=== PATIENT | male | born 1970 | race American Indian/Alaskan Native ===

== ENCOUNTER 2017-05-26 20:56 | Emergency (ER) | payer OTHER ==
[2017-05-26 20:56] VITALS: BMI 35.6
[2017-05-26 20:59] VITALS: RESP 16; TEMP 99.1; O2SAT 99
[2017-05-26] MEDS ORDERED: Albuterol-Ipratrop 3 mg / 0.5 (3 ml) UD INH STA ×2 (21:15)
--- NOTE | 2017-05-26 21:44 | ED PDOC ---
HPI: General Adult Time Seen by Provider: 05/26/17 21:09 Chief Complaint (Nursing): Medical Clearance History Per: Patient History/Exam Limitations: no limitations Onset/Duration Of Symptoms: Hrs Have you had recent travel within the past 21 days to any of the following countries: [place], [place], [place] or [place]?: No Additional Complaint(s): Hx of heroin abuse (states 15 bags per day, last usage was yesterday at unknown time) p/w vomiting, yawning, diarrhea. BIBEMS, was at police station being arraigned and states that he was going into withdrawal. Past Medical History Reviewed: Historical Data, Nursing Documentation, Vital Signs Vital Signs: Last Vital Signs Temp 99.1 F 05/26/17 20:59 Pulse 76 05/26/17 22:14 Resp 16 05/26/17 20:59 BP 143/95 H 05/26/17 22:14 Pulse Ox 99 05/26/17 22:42 - Medical History PMH: Asthma Denies: Depression - Family History Family History: States: Unknown Family Hx - Immunization History Hx Tetanus Toxoid Vaccination: No Hx Influenza Vaccination: Yes Hx Pneumococcal Vaccination: No - Home Medications Home Medications: Ambulatory Orders Medication Instructions Recorded Albuterol 0.083% [Albuterol 3 ml IH Q6 PRN 05/04/17 Sulfate 3 Ml] - Allergies Allergies/Adverse Reactions: Allergies Allergy/AdvReac Type Severity Reaction Status Date / Time No Known Allergies Allergy Verified 06/29/13 14:51 Review of Systems ROS Statement: Except As Marked, All Systems Reviewed And Found Negative Gastrointestinal: Positive for: Nausea, Vomiting, Diarrhea Physical Exam - Reviewed Nursing Documentation Reviewed: Yes Vital Signs Reviewed: Yes - Physical Exam Appears: Positive for: Well, Non-toxic, Uncomfortable (active vomiting/retching) Head Exam: Positive for: ATRAUMATIC, NORMAL INSPECTION, NORMOCEPHALIC Skin: Positive for: Normal Color, Warm, DRY Eye Exam: Positive for: EOMI, Normal appearance, PERRL ENT: Positive for: Normal ENT Inspection Neck: Positive for: Normal, Painless ROM Cardiovascular/Chest: Positive for: Regular Rate, Rhythm Respiratory: Positive for: Wheezing (mild, bilaterally) Gastrointestinal/Abdominal: Positive for: Normal Exam, Bowel Sounds, Soft Back: Positive for: Normal Inspection Extremity: Positive for: Normal ROM Neurologic/Psych: Positive for: Alert, Oriented - ECG O2 Sat by Pulse Oximetry: 99 Medical Decision Making Medical Decision Making: A/P: Hx of asthma p/w heroin withdrawl -vitals stable -symptomatic treatment with phenergan IM, clonidine PO -duonebs for wheezing -will re-evaluate Time: 21:11 - Phenergan Inj Time: 21:15 - Duoneb 3 mg/0.5 mg (3 ml) UD - Duoneb 3 mg/0.5 mg (3 ml) UD Time: 21:40 - Catapres 0.2 mg PO STAT Time: 23:30 --Tolerating po, feeling better; will be released into police custody Scribe Attestation: Documented by Rigoberto Lowe, acting as a scribe for Dr. Fabian Dumont MD Provider Scribe Attestation: All medical record entries made by the Scribe were at my direction and personally dictated by me. I have reviewed the chart and agree that the record accurately reflects my personal performance of the history, physical exam, medical decision making, and the department course for this patient. I have also personally directed, reviewed, and agree with the discharge instructions and disposition. Disposition - Clinical Impression Clinical Impression: Opiate withdrawal - Patient ED Disposition Is Patient to be Admitted: No - Disposition Referrals: [facility] [Outside] Disposition Time: 23:30 Condition: STABLE Additional Instructions: Patient is medically and psychiatrically cleared for incarceration. Instructions: Opioid Withdrawal (ED) Forms: [employer] (Mongolian)
[2017-05-26 22:15] VITALS: BP 143/95; PULSE 76
== END 2017-05-26 23:49 ==
LOC: H.ER 20:56
DX: F11.23 Opioid dependence with withdrawal (principal); J45.909 Unspecified asthma, uncomplicated
CPT/HCPCS: 82948; 96372; 99281; J2550

== ENCOUNTER 2017-11-08 22:30 | Emergency (ER) | payer OTHER ==
[2017-11-08 22:41] VITALS: BP 102/66; PULSE 18; RESP 18; TEMP 98; O2SAT 98
[2017-11-08 22:42] VITALS: BMI 27.6
[2017-11-08] MEDS ORDERED: Albuterol-Ipratrop 3 mg / 0.5 (3 ml) UD INH STA (23:03)
--- NOTE | 2017-11-08 23:06 | ED PDOC ---
HPI: General Adult Time Seen by Provider: 11/08/17 22:54 Chief Complaint (Nursing): Medical Clearance Chief Complaint (Provider): Clearance for incarceration History Per: Patient Additional Complaint(s): Patient is a 47 yo male, PMH of Asthma, presents to ED for medical and psychological clearance for incarceration with officer #[id number]. Pt denies any physical complaints asking for sandwich. Pt admits to using heroin last yesterday, only cannabis use today. Past Medical History Reviewed: Nursing Documentation, Vital Signs Vital Signs: Last Vital Signs Temp 98 F 11/08/17 22:40 Pulse 18 L 11/08/17 22:40 Resp 18 11/08/17 22:40 BP 102/66 11/08/17 22:40 Pulse Ox 98 11/08/17 23:15 - Medical History PMH: Asthma Denies: Depression, Chronic Kidney Disease - Surgical History Other surgeries: "Arm" surgery - Family History Family History: States: Unknown Family Hx - Living Arrangements Living Arrangements: With Friends/Others - Social History Current smoker - smoking cessation education provided: No Alcohol: Social Drugs: Cannabis, Other (heroin) - Immunization History Hx Tetanus Toxoid Vaccination: No Hx Influenza Vaccination: Yes Hx Pneumococcal Vaccination: No - Home Medications Home Medications: Ambulatory Orders Medication Instructions Recorded Albuterol 0.083% [Albuterol 3 ml IH Q6 PRN 05/04/17 Sulfate 3 Ml] - Allergies Allergies/Adverse Reactions: Allergies Allergy/AdvReac Type Severity Reaction Status Date / Time No Known Allergies Allergy Verified 07/04/17 18:27 Review of Systems ROS Statement: Except As Marked, All Systems Reviewed And Found Negative Physical Exam - Reviewed Nursing Documentation Reviewed: Yes Vital Signs Reviewed: Yes - Physical Exam Appears: Positive for: Well, Non-toxic, No Acute Distress Head Exam: Positive for: ATRAUMATIC, NORMAL INSPECTION, NORMOCEPHALIC Skin: Positive for: Normal Color, Warm, DRY Eye Exam: Positive for: EOMI, Normal appearance, PERRL ENT: Positive for: Normal ENT Inspection Neck: Positive for: Normal, Painless ROM Cardiovascular/Chest: Positive for: Regular Rate, Rhythm Respiratory: Positive for: Other (mild expiratory wheezing). Negative for: Decreased Breath Sounds, Accessory Muscle Use Gastrointestinal/Abdominal: Positive for: Normal Exam, Soft Back: Positive for: Normal Inspection Extremity: Positive for: Normal ROM Neurologic/Psych: Positive for: Alert, Oriented - ECG O2 Sat by Pulse Oximetry: 98 Medical Decision Making Medical Decision Making: EKG: SB at 56 bpm, Incomplete RBBB, no acute ST changes, as read by ED MD Tigist abraham initiated Full resolution of wheezing on re-eval Pt tolerating Po and speaking ot officers at bedside Crisis made aware of consult. Case endorsed to MIKE Esteban at 0000 pending crisis eval for incarceration and re -eval Disposition - Clinical Impression Clinical Impression: Cannabis abuse, Asthma - Patient ED Disposition Is Patient to be Admitted: Transfer of Care - Disposition Disposition: Transfer of Care Disposition Time: 00:00 Condition: STABLE Instructions: General (DC) Forms: [employer] (Frisian)
[2017-11-08] MEDS ORDERED: Albuterol-Ipratrop 3 mg / 0.5 (3 ml) UD ONE (23:34)
--- NOTE | 2017-11-09 00:43 | ED PDOC ---
- ECG O2 Sat by Pulse Oximetry: 98 - Progress ED Course And Treament: Case endorsed to blurb writer from Aubrey MCKEON pending crisis eval 00:30 Patient evaluated by laundry worker and cleared for discharge as per Dr. Nicholson Disposition - Clinical Impression Clinical Impression: Cannabis abuse, Asthma, Adjustment disorder - POA Present On Arrival: None - Disposition Referrals: [facility] [Outside] Disposition: Discharged/Transfer to Law Enforcement Disposition Time: 00:42 Condition: STABLE Additional Instructions: Patient medically and psychiatrically cleared for incarceration Instructions: Asthma in Adults, Adjustment Disorder, Marijuana Use and Addiction
--- NOTE | 2017-11-10 15:26 | CARD ---
APPROVED REPORT Date of service: 11/08/2017 EKG Measurement Heart [id number] <Conclusion> Sinus bradycardia Incomplete right bundle branch block Borderline ECG
== END 2017-11-09 00:54 ==
LOC: H.ER 22:30
DX: F12.10 Cannabis abuse, uncomplicated (principal); J45.909 Unspecified asthma, uncomplicated; F43.20 Adjustment disorder, unspecified